=== PATIENT | female | born 1985 | race Caucasian/White ===

== ENCOUNTER 2020-11-11 19:10 | Outpatient (CLI) | payer MEDICAID ==
[2020-11-11 19:47] LABS: HEMATOCRIT 32.8 % (36.0-48.0); MCH 29.7 pg (26.0-34.0); MCHC 33.5 g/dL (31.0-37.0); MCV 88.6 fL (80.0-100.0); MEAN PLATELET VOLUME 8.9 fL (7.4-10.4); RBC 3.7 10x6/uL (4.00-5.40); RDW 13.1 % (11.5-14.5); WBC 14.5 10x3/uL (4.8-10.8)
[2020-11-11 20:03] LABS: BILIRUBIN NEGATIVE (NEGATIVE); KETONE NEGATIVE (NEGATIVE); NITRITE NEGATIVE (NEGATIVE); UROBILINOGEN NORMAL mg/dL (< 2)
[2020-11-11 20:04] LABS: BACTERIA FEW HPF (NONE SEEN); SQUAMOUS EPITHELIAL 0-5 HPF (0-4); WHITE CELLS - URINE 25-50 HPF (0-4)
[2020-11-11 20:11] LABS: UDS - AMPHET NEGATIVE QUAL (NEGATIVE); UDS - BARB NEGATIVE QUAL (NEGATIVE); UDS - BENZO NEGATIVE QUAL (NEGATIVE); UDS - COCAINE NEGATIVE QUAL (NEGATIVE); UDS - OPIATE NEGATIVE QUAL (NEGATIVE); UDS - PCP NEGATIVE QUAL (NEGATIVE); UDS - THC POSITIVE QUAL (NEGATIVE)
[2020-11-13 06:11] LABS: RAPID PLASMA REAGIN Non Reactive (Non Reactive)
[2020-11-13 10:11] LABS: HEPATITIS C ANTIBODY <0.1 S/CO RAT (0.0-0.9)
[2020-11-13 11:09] LABS: RUBELLA IGG 1.74 index (Immune >0.99)
[2020-11-16 09:13] LABS: HGB SOLUBILITY (SICKLE SCREEN) Negative (Negative)
== END 2020-11-12 14:55 | disposition home or self-care (01) ==
LOC: D.LDO 19:10 → D.LD 19:10 → D.LDO 11-12 14:55
PROVIDERS: ATTEND Student in an Organized Health Care Education/Training Program
DX: O26.893 Other specified pregnancy related conditions, third trimester (principal); Z3A.33 33 weeks gestation of pregnancy; Z72.0 Tobacco use

== ENCOUNTER 2020-11-16 18:44 | Outpatient (CLI) | payer MEDICAID | END 2020-11-17 00:55 | disposition other institution (70) | LOC: D.LDO 18:44 → D.LD 23:35 → D.LDO 11-17 00:55 | PROVIDERS: ATTEND Student in an Organized Health Care Education/Training Program | DX: O26.893 Other specified pregnancy related conditions, third trimester (principal); Z3A.33 33 weeks gestation of pregnancy ==